=== PATIENT | male | born 1980 | race Caucasian/White ===

== ENCOUNTER 2020-09-26 05:53 | Emergency (ER) | payer OTHER ==
[~2020-09-26 05:53] MED LIST: ALPRAZOLAM2 MG PO; ASPIRIN EC81 MG PO; FAMOTIDINE40 MG PO; LASIX40 MG PO; LIPITOR 10MG TA10 MG PO; LISINOPRIL 10MG10 MG PO; METOPROLOL SUCC25 MG PO; PERCOCET 10/321 EACH PO; TOPROL XL 25MG25 MG PO; TOPROL XL 50 MG50 MG PO; TRAZODONE 150M150 MG PO
[2020-09-26 06:28] LABS: BASOPHIL 0.7 % (0-2); EOSINOPHIL 1.6 % (0-5); HCT 50.9 % (42.0-52.0); HGB 17.8 g/dl (13.2-18.0); LYMPHOCYTE 23.5 % (15-48); MCH 33.6 pg (25.0-31.0); MCV 96.2 fL (78.0-100.0); MONOCYTE 12.1 % (0-12); MPV 9.6 fL (6.0-9.5); NEUTROPHIL 61.2 % (41-80); NRBC 0; PLT 204 K/uL (150-400); RBC 5.29 M/uL (4.70-6.00); RDW 12.8 % (11.5-14.0); WBC 9.1 K/uL (4.0-10.5)
[2020-09-26 06:40] LABS: INR 0.96 (0.9-1.2); PROTHROMBIN TIME 12.1 SECONDS (11.4-13.6); PTT 27.8 SECONDS (22.2-34.7)
[2020-09-26 06:42] LABS: D-DIMER 0.35 ug/mLFEU (0.00-0.41)
[2020-09-26 07:59] LABS: ALBUMIN 3.6 g/dL (3.4-5.0); BILIRUBIN - TOTAL 0.4 mg/dL (0.2-1.0); CREATININE 1.11 mg/dL (0.67-1.17); FT4 (FREE T4) 0.8 ng/dL (0.76-1.46); GLOBULIN (CALCULATION) 3.4 g/dL; MAGNESIUM 1.7 mg/dL (1.8-2.4); POTASSIUM 3.8 mmol/L (3.5-5.1)
== END 2020-09-26 14:44 | disposition home or self-care (01) ==
LOC: FER 05:53
PROVIDERS: Emergency Medicine Emergency Medical Services
DX: I48.0 Paroxysmal atrial fibrillation (principal); I10 Essential (primary) hypertension; E78.5 Hyperlipidemia, unspecified; Z79.899 Other long term (current) drug therapy; Z79.82 Long term (current) use of aspirin
CPT/HCPCS: 36415; 71045; 80053; 83735; 83880; 84439; 84443; 84484; 85025; 85379; 85610; 85730; 93005; 94640; 94664; J1170; J1200; J1885; J2060; J2405; J2930